=== PATIENT | male | born 2000 | race Caucasian/White ===

== ENCOUNTER 2022-11-18 16:25 | Emergency (ER) | payer BC ==
[~2022-11-18] VITALS: Ht 182.9 cm; Wt 84.1 kg
[2022-11-18 16:41] VITALS: BP 119/60
[2022-11-18] MEDS ORDERED: DOXYCYCLINE 100MG CAPSULE PO STA (17:36)
[2022-11-18] MEDS ORDERED: bacitracin 15gm ointment TP ONE (17:40)
[2022-11-18] MEDS ORDERED: LIDOcaine 1% 30ml preserv. free vial IJ ONE (17:40)
[2022-11-18] MEDS ORDERED: ketorolac trometh inj. 60 MG/2 ML VIAL IM ONE (17:40)
--- NOTE | 2022-11-18 17:42 | NUR ---
xray at [facility]
[2022-11-18] MEDS ORDERED: cephalexin 250mg capsule PO ONE (17:45)
[2022-11-18] MEDS ORDERED: IBUP-1986 PO (18:47)
[2022-11-18] MEDS ORDERED: CEPH-585 PO (18:47)
== END 2022-11-18 18:55 | disposition home or self-care (01) ==
LOC: ER 16:26
DX: S91.311A Laceration without foreign body, right foot, initial encounter (principal); W17.89XA Other fall from one level to another, initial encounter; Y93.89 Activity, other specified; Y92.89 Other specified places as the place of occurrence of the external cause; Y99.8 Other external cause status; Z88.0 Allergy status to penicillin; Z88.2 Allergy status to sulfonamides
CPT/HCPCS: 12004; 73630; 96372; 99284; J1885; J3490; L4360; A6449